=== PATIENT | male | born 1930 | race Caucasian/White ===

== ENCOUNTER 2018-06-27 11:00 | Inpatient (IN) | payer MEDICARE, OTHER ==
[~2018-06-27] VITALS: Ht 175.3 cm; Wt 86.0 kg
[2018-06-27 11:31] LABS: BASOPHILS ABSOLUTE AUTO 0.03 K/mm3 (0.00-0.23); BASOPHILS PERCENT AUTO 0 % (0-2); EOSINOPHILS ABSOLUTE AUTO 0.03 K/mm3 (0.00-0.68); EOSINOPHILS PERCENT AUTO 0 % (0-6); Hematocrit 43.6 % (37.0-53.0); Hemoglobin 14.8 g/dL (13.5-17.5); IMMATURE GRAN ABSOLUTE AUTO 0.05 K/mm3 (0.00-0.10); IMMATURE GRAN PERCENT AUTO 0 % (0-1); LYMPHOCYTES ABSOLUTE AUTO 1.66 K/mm3 (0.84-5.20); LYMPHOCYTES PERCENT AUTO 12 % (21-46); MONOCYTES ABSOLUTE AUTO 1.13 K/mm3 (0.16-1.47); MONOCYTES PERCENT AUTO 8 % (4-13); Mean Corpuscular HGB 30.3 pg (26.0-34.0); Mean Corpuscular HGB Conc 33.9 g/dL (31.5-36.5); Mean Corpuscular Volume 89 fL (80-100); Mean Platelet Volume 11.2 fL (9.1-12.4); NEUTROPHILS ABSOLUTE AUTO 11.01 K/mm3 (1.96-9.15); NEUTROPHILS PERCENT AUTO 79 % (41-73); Platelet Count 192 K/mm3 (150-400); RDW Coefficient Variation 12.8 % (11.7-14.2); RDW Standard Deviation 41.8 fL (35.1-46.3); Red Blood Cell Count 4.89 M/mm3 (4.30-5.90); White Blood Cell Count 13.91 K/mm3 (4.00-11.30)
[2018-06-27] MEDS ORDERED: LATANOPROST2.5 ML OP (11:34)
[2018-06-27] MEDS ORDERED: LEVSOD50 PO (11:34)
[2018-06-27] MEDS ORDERED: LOSA50 PO (11:34)
[2018-06-27] MEDS ORDERED: Metformin HCl500 MG PO (11:34)
[2018-06-27] MEDS ORDERED: Aspirin EC81 MG (11:34)
[2018-06-27] MEDS ORDERED: PRESERVISION A1 EACH PO (11:35)
[2018-06-27 11:57] LABS: Alanine Aminotransfer (ALT/SGP 21 U/L (12-78); Albumin, Blood 3.5 g/dL (3.4-5.0); Alk Phos 95 U/L (50-136); Anion Gap 11 mmol/L (6-16); Aspartate Aminotrans (AST/SGOT 35 U/L (12-37); Bilirubin, Total 0.6 mg/dL (0.1-1.0); Blood Urea Nitrogen 13 mg/dL (8-24); CO2, Blood 25 mmol/L (21-32); Calcium, Blood 8.9 mg/dL (8.5-10.1); Chloride, Blood 104 mmol/L (98-108); Creatine Kinase MB 4.5 ng/mL (0.0-3.6); Ethanol (Alcohol), Blood, Med <3 mg/dL; Globulin, Blood 3.6 g/dL (2.2-4.0); Glomerular Filtration Rate >60 (60-); Glucose, Blood 183 mg/dL (70-99); Sodium, Blood 140 mmol/L (136-145); Total Protein, Blood 7.1 g/dL (6.4-8.2)
[2018-06-27 12:08] LABS: Source, Urine Catheter
[2018-06-27 12:19] LABS: Appearance, Urine Clear (Clear); Bilirubin, Urine Neg (Neg); Blood, Urine 3+ (Neg); Color, Urine Yellow (P-Yellow); Glucose Qualitative, Urine 3+ (Neg); Ketones, Urine 1+ (Neg); Leukocyte Esterase, Urine 1+ (Neg); Nitrite, Urine Neg (Neg); Protein, Urine 3+ (Neg); Urobilinogen, Urine NORM (Normal)
[2018-06-27 12:23] LABS: CPK Creatine Kinase 1414 U/L (39-308); Creatine Kinase MB Index 0.3 (0.0-4.0)
[2018-06-27 12:28] LABS: Granular Casts 0-2 /lpf (0); Hyaline Casts 0-2 /lpf (0-2)
[2018-06-27 12:29] LABS: Bacteria Few /hpf; Squamous Epithelial Cells Few /hpf (Few)
[2018-06-27 12:31] LABS: U Amphetamine Screen Not Detected; U Barbituate Screen Not Detected; U Benzodiazapine Screen Not Detected; U Buprenorphine Screen Not Detected; U Cannabinoids Screen Not Detected; U Cocaine Screen Not Detected; U Methadone Screen Not Detected; U Methamphetamine Screen Not Detected; U Opiates Screen Not Detected; U Oxycodone Screen Not Detected; U Phencyclidine Screen Not Detected; U Propoxyphene Screen Not Detected
[2018-06-27 12:35] LABS: Base Excess Venous 1.6 mmol/L; Bicarbonate Venous 25.2 mmol/L (24.0-30.0); PCO2 Venous 44.2 mmHg (38-42); PO2 Venous 51.2 mmHg (38-42); pH Blood Venous 7.39 (7.34-7.37)
[2018-06-28 06:08] LABS: CHOL/HDL RATIO 3.9; Cholesterol 213 mg/dL (50-200); HDL Cholesterol 54 mg/dL (>39); LDL/HDL RATIO 2.4; Low Density Lipoprotein Chol 132 mg/dL (0-110); Triglycerides 137 mg/dL (30-160); Very Low Density Lipoprot Chol 27 mg/dL (6-32)
[2018-06-30] MEDS ORDERED: ACET325 PO (14:40)
[2018-06-30] MEDS ORDERED: ATOR20 PO (14:40)
[2018-06-30] MEDS ORDERED: Lacri-Lube S.O3.5 GM LEFTEYE (14:42)
== END 2018-06-30 16:14 | disposition home or self-care (01) | DRG 65 ==
LOC: ER 11:00 → MEDS 11:01
PROVIDERS: Emergency Medicine; Internal Medicine
DX: I63.9 Cerebral infarction, unspecified (principal); G81.94 Hemiplegia, unspecified affecting left nondominant side; R47.81 Slurred speech; R29.810 Facial weakness; I10 Essential (primary) hypertension; E11.9 Type 2 diabetes mellitus without complications; E78.5 Hyperlipidemia, unspecified; E03.9 Hypothyroidism, unspecified; B95.4 Other streptococcus as the cause of diseases classified elsewhere; H35.3290 Exudative age-related macular degeneration, unspecified eye, stage unspecified; N40.0 Benign prostatic hyperplasia without lower urinary tract symptoms
CPT/HCPCS: 36415; 70450; 70551; 71045; 80053; 80061; 81001; 82550; 82553; 82803; 82947; 84443; 84484; 85025; 87077; 87086; 87186; 92507; 92523; 93005; 93010; 93306; 93880; 96365; 96366; 97110; 97116; 97162; 97166; 97530; 97535; 99285-25; G0480; G8978; G8979; G8987; G8988; G8999; G9186; J1650; J1815; J3411; J3475; J7042